=== PATIENT | male | born 2000 | race Caucasian/White ===

== ENCOUNTER 2020-10-14 16:23 | Observation (INO) ==
[2020-10-14] MEDS ORDERED: 0.9 % Sodium Chloride 1,000 ML IVC ONE (16:36)
[2020-10-14] MEDS ORDERED: Isovue-370 500 ML BOTTLE IVP ONE (16:37)
[2020-10-14] MEDS ORDERED: *HR* FentaNYL (PF) 100 MCG/2 ML VIAL IVP ONE (16:42)
[2020-10-14 17:03] LABS: Bilirubin,Urine Negative (Negative); Blood,Urine Negative (Negative); Clarity,Urine Clear (Clear); Color,Urine Light-Yellow (Yellow); Glucose,Urine (UA) Normal (Normal); Ketones,Urine Negative (Negative); Leukocyte Esterase,Urine Negative (Negative); Nitrite,Urine Negative (Negative); Protein,Urine Trace mg/dL (Neg-Trace); Urobilinogen,Urine Normal (Normal)
[2020-10-14 17:05] LABS: Basophils % 0.3 %; Eosinophils % 0.2 %; Hematocrit 47.2 % (37.5-50.1); Hemoglobin 15.7 g/dL (12.9-16.9); Immature Granulocytes % 0.5 % (0-4); Lymphocytes # 1.7 K/mcL (0.6-4.6); Lymphocytes % 10.9 %; Mean Corpuscular HGB Conc 33.3 g/dL (31.6-35.5); Mean Corpuscular Hemoglobin 31.3 pg (28.0-33.3); Mean Corpuscular Volume 94.2 fL (83.0-100.0); Mean Platelet Volume 11.8 fL (9.4-12.4); Monocytes % 6.6 %; Neutrophils # 12.5 K/mcL (1.6-8.9); Platelet Count 301 K/mcL (140-400); Red Blood Count 5.01 M/mcL (4.19-5.50); Red Cell Distribution Width 12.4 % (11.5-14.5); Segmented Neutrophils % 81.5 %; White Blood Count 15.4 K/mcL (4.3-11.1)
[2020-10-14 17:25] LABS: Alanine Aminotransferase 26 Units/L (7-52); Albumin 4.8 g/dL (3.5-5.7); Albumin/Globulin Ratio 1.9 (1.1-2.2); Alkaline Phosphatase 48 Units/L (34-104); Aspartate Amino Transferase 16 Units/L (13-39); BUN/Creatinine Ratio 10 (6-26); Bilirubin,Direct 0.1 mg/dL (0.0-0.2); Bilirubin,Indirect 0.4 mg/dL (0.0-1.0); Bilirubin,Total 0.5 mg/dL (0.3-1.0); Blood Urea Nitrogen 8 mg/dL (6-20); Calcium 9.8 mg/dL (8.6-10.3); Carbon Dioxide 25 mEq/L (23-29); Chloride 104 mEq/L (98-107); Globulin 2.5 g/dL (2.4-3.5); Glucose 87 mg/dL (70-105); Lipase 3 Units/L (11-82); Osmolality,Calculated 284 (280-300); Potassium 3.9 mEq/L (3.5-5.1); Sodium 138 mEq/L (136-145); Total Protein 7.3 g/dL (6.4-8.9); eGFR For African Americans > 60 (> 60); eGFR For Non-African Americans > 60 (> 60)
[2020-10-14] MEDS ORDERED: Piperacillin/Tazobactam 3.375 GM in 0.9 % Sodium Chloride Mini Bag 100 ML IVPB ONE (19:31)
[2020-10-14] MEDS ORDERED: Ondansetron 4 MG/2 ML VIAL IVP PRN ×2 (20:25→23:16)
[2020-10-14] MEDS ORDERED: *HR* Meperidine 25 MG/ML SYRINGE IVP PRN (20:25)
[2020-10-14] MEDS ORDERED: Lidocaine -MPF 2% 2 ML VIAL ONE (20:29)
[2020-10-14] MEDS ORDERED: *HR* Rocuronium Bromide 50 MG/5 ML VIAL ONE (20:29)
[2020-10-14] MEDS ORDERED: *HR* Succinylcholine 200 MG/10 ML VIAL IVP ONE (20:29)
[2020-10-14] MEDS ORDERED: *HR* FentaNYL (PF) 100 MCG/2 ML VIAL ONE ×2 (20:29→21:50)
[2020-10-14] MEDS ORDERED: *HR* Propofol 200 MG/20 ML VIAL IVP ONE (20:29)
[2020-10-14] MEDS ORDERED: Lidocaine HCL 4 ML Topical Solution (Laryng-O-Jet Kit Sterile Pak) TP ONE (20:29)
[2020-10-14 20:30] LABS: Influenza A PCR Negative (Negative); Influenza B PCR Negative (Negative); Resp. Syncytial Virus PCR Negative (Negative)
[2020-10-14] MEDS ORDERED: Acetaminophen IV 1,000 MG/100 ML BAG IVPB ONE (20:38)
[2020-10-14 20:39] LABS: SARS-CoV-2 by PCR (In House) Negative (Negative)
[2020-10-14] MEDS ORDERED: CefOXitin 1,000 MG VIAL ONE ×2 (20:47→22:05)
[2020-10-14] MEDS ORDERED: Ondansetron 4 MG/2 ML VIAL ONE (21:38)
[2020-10-14] MEDS: *HR* HYDROmorphone PF 0.5 MG/0.5 ML SYRINGE IVP PRN ×2 (22:36→22:45)
[2020-10-14] MEDS ORDERED: Ringers Solution, Lactated 1,000 ML ONE (22:44)
[2020-10-14] MEDS: 0.9 % Sodium Chloride 1,000 ML IVC SCH (23:46)
[2020-10-15 01:40] LABS: Basophils % 0.1 %; Hematocrit 43.6 % (37.5-50.1); Hemoglobin 14.6 g/dL (12.9-16.9); Immature Granulocytes % 0.4 % (0-4); Lymphocytes % 6.1 %; Mean Corpuscular HGB Conc 33.5 g/dL (31.6-35.5); Mean Corpuscular Hemoglobin 31.6 pg (28.0-33.3); Mean Corpuscular Volume 94.4 fL (83.0-100.0); Mean Platelet Volume 12.3 fL (9.4-12.4); Monocytes # 0.4 K/mcL (0.0-1.3); Monocytes % 2.5 %; Neutrophils # 14.3 K/mcL (1.6-8.9); Platelet Count 296 K/mcL (140-400); Red Blood Count 4.62 M/mcL (4.19-5.50); Red Cell Distribution Width 12.5 % (11.5-14.5); Segmented Neutrophils % 90.9 %; White Blood Count 15.8 K/mcL (4.3-11.1)
[2020-10-15 01:57] LABS: BUN/Creatinine Ratio 10 (6-26); Blood Urea Nitrogen 9 mg/dL (6-20); Calcium 9.4 mg/dL (8.6-10.3); Carbon Dioxide 23 mEq/L (23-29); Chloride 105 mEq/L (98-107); Glucose 151 mg/dL (70-105); Osmolality,Calculated 284 (280-300); Potassium 4.3 mEq/L (3.5-5.1); Sodium 136 mEq/L (136-145); eGFR For African Americans > 60 (> 60); eGFR For Non-African Americans > 60 (> 60)
[2020-10-15] MEDS: Piperacillin/Tazobactam 3.375 GM in 0.9 % Sodium Chloride Mini Bag 100 ML IVPB SCH ×3 (04:28→20:30)
[2020-10-15] MEDS: 0.9 % Sodium Chloride 1,000 ML IVC SCH ×2 (09:24→20:28)
[2020-10-15] MEDS: *HR* OxyCODONE/APAP 5/325 TABLET PO PRN ×2 (13:49→18:46)
[2020-10-16] MEDS: Piperacillin/Tazobactam 3.375 GM in 0.9 % Sodium Chloride Mini Bag 100 ML IVPB SCH ×2 (04:51→11:34)
[2020-10-16 07:24] VITALS: BP 112/71
[2020-10-16] MEDS ORDERED: Ibuprofen 800 MG TABLET PO ONE (10:29)
[2020-10-16] MEDS: 0.9 % Sodium Chloride 1,000 ML IVC SCH (11:29)
== END 2020-10-16 14:22 | disposition home or self-care (01) ==
LOC: 3ANU 16:23 → EMEROOARM 16:23 → 3ANU 21:06
PROVIDERS: ADMIT Surgery; ATTEND Surgery